=== PATIENT | female | born 1950 | race Caucasian/White ===

== ENCOUNTER → 2019-01-26 | Outpatient (CLI) | payer MEDICARE ==
[~2019-01-26] VITALS: Ht 170.2 cm; Wt 88.5 kg
[~2019-01-26] MED LIST: LIDOCAINE 1% INJ 20 ML 20 ML VIAL INJ ONE
--- NOTE | 2019-01-26 19:44 | Diagnostic Imaging Report ---
INDICATION: Breast mass TECHNIQUE AND FINDINGS: After explaining the risks, benefits and alternatives of the procedure to the patient, written consent was obtained. A preliminary ultrasound was obtained for localization purposes. Patient's left breast was prepped and draped utilizing maximal sterile technique. Local anesthesia was obtained with 2% lidocaine. Needle was advanced into the lesion under ultrasound guidance. 7 core biopsies were obtained. Following biopsy a clip was placed. Patient tolerated the procedure well and left the Department in stable condition. IMPRESSION: Successful ultrasound-guided breast biopsy as described Dictated by: Dictated on workstation # [id number]
--- NOTE | 2019-01-26 21:09 | Diagnostic Imaging Report ---
INDICATION: Clip placement following biopsy. EXAMINATION: Two views of the left breast were obtained. FINDINGS: The surgical clips are immediately adjacent to the well-circumscribed mass in the upper outer left breast. IMPRESSION: Satisfactory clip placement, as described. Dictated by: Dictated on workstation # [id number]
== END ==
LOC: RAD 08:46
PROVIDERS: ATTEND Family Medicine
DX: N63.20 Unspecified lump in the left breast, unspecified quadrant (principal)
CPT/HCPCS: 19083

== ENCOUNTER → 2021-07-15 | Outpatient (CLI) | payer OTHER ==
--- NOTE | 2021-07-15 09:18 | Diagnostic Imaging Report ---
Indication: Left knee pain AP, oblique, and lateral views of left knee are obtained. No fracture or acute bony abnormality seen. There is marked medial joint space narrowing with osteophyte formation. There is milder lateral joint space osteophyte formation. There is prominent patellofemoral spurring and joint space narrowing. There is a joint effusion in the suprapatellar recess. IMPRESSION: Osteoarthritic changes of the left knee with joint effusion suprapatellar recess. No acute abnormality. Dictated by: Dictated on workstation # [id number]
== END ==
LOC: RAD FS 08:47
PROVIDERS: ATTEND Nurse Practitioner
DX: M17.12 Unilateral primary osteoarthritis, left knee (principal); M25.462 Effusion, left knee
CPT/HCPCS: 73562